=== PATIENT | female | born 1945 | race Caucasian/White ===

== ENCOUNTER 2018-11-23 11:47 | Emergency (ER) | payer OTHER, BC ==
[~2018-11-23] VITALS: Ht 170.2 cm; Wt 86.2 kg
[2018-11-23 12:12] LABS: ABSOLUTE NEUTROPHILS 2.8 thou/uL (1.4-8.2); BASOPHILS 1.2 % (0.0-2.0); EOSINOPHILS 11.7 % (0.0-3.0); HEMATOCRIT 41.5 % (37.0-47.0); LYMPHOCYTES 44.2 % (24.0-44.0); MCH 32.1 pg (26.0-34.0); MCHC 33.8 g/dL (28.0-37.0); MCV 94.9 fL (80.0-100.0); MONOCYTES 7.1 % (1.0-8.0); PLATELET COUNT 234 thou/uL (150-400); POLYS 35.8 % (36.0-66.0); RBC 4.38 mil/uL (4.20-5.00); RDW 13.3 % (10.5-14.5); WBC 7.8 thou/uL (4.0-11.0)
[2018-11-23 12:25] LABS: ANION GAP 10 mmol/L (7-16); BUN 22 mg/dL (7-18); CALCIUM 9.2 mg/dL (8.5-10.1); CHLORIDE 100 mmol/L (98-107); CO2 28 mmol/L (21-32); CREATININE 0.9 mg/dL (0.6-1.0); GLUCOSE 197 mg/dL (74-106); POTASSIUM 4.2 mmol/L (3.5-5.1); SODIUM 138 mmol/L (136-145)
[2018-11-23 12:33] LABS: SGOT 33 U/L (15-37); SGPT 24 U/L (30-65); TOTAL BILIRUBIN 0.3 mg/dL (<0.1-1.0); TOTAL PROTEIN 8.1 g/dL (6.4-8.2); TROPONIN-I <0.06 ng/mL (<0.06)
--- NOTE | 2018-11-23 13:50 | EKG ---
[facility] [place] [address] ELECTROCARDIOGRAM REPORT Name: WALLY BAUM Room #: REG M.RJuan#: [id number] ������������������ Admission: 11/23/18 ������������������ Attend Phys: Discharge: ������������������ Date of : 45 Report #: [id number] ����������������������������������������������������������������� [id number] THIS REPORT FOR: //name// [facility] ED Test Date: 2018-11-23 Test Time: 11:57:08 Pat Name: WALLY BAUM Department: Room: Gender: F [employer] Feeder: THELMA : 1945 Requested By: Peter Herrera Order Number: [id number] MD: Timbo Limon Measurements Intervals Friend Rate: 117 P: -77 IL: 165 QRS: -49 QRSD: 108 T: 88 QT: 317 QTc: 443 Interpretive Statements Regular rhythm tachycardic rate Unable to identify P waves 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
[2018-11-23 14:05] LABS: BE(vivo) 1.9 mmol/L (-2 to +3); HCO3 27.2 mmol/L (22.0-26.0); PCO2 45.1 mmHg (35.0-45.0); PO2 120.4 mmHg (80.0-100.0); pH 7.398 (7.360-7.450); sO2 98.3 % (92.0-98.0)
[2018-11-23 16:05] VITALS: BP 114/55
== END 2018-11-23 16:05 | disposition short-term general hospital (02) ==
LOC: ER 11:47
PROVIDERS: Emergency Medicine
DX: J45.901 Unspecified asthma with (acute) exacerbation (principal); Z88.1 Allergy status to other antibiotic agents; Z88.8 Allergy status to other drugs, medicaments and biological substances